=== PATIENT | female | born 1985 | race Caucasian/White ===

== ENCOUNTER 2021-02-09 20:23 | Emergency (ER) | payer BC, OTHER ==
[2021-02-09] MEDS ORDERED: Meclizine HCl 25 MG TAB ONE (20:41)
[2021-02-09] MEDS ORDERED: Ondansetron ODT 4 MG TAB ONE (20:41)
[2021-02-09] MEDS ORDERED: Sodium Chloride 0.9% 1,000 ML ONE (20:51)
[2021-02-09 21:06] LABS: #Basophils 0.1 thou/uL (0.0-0.2); #Eosinphils 0.1 thou/uL (0.0-0.7); #Lymphocytes 1.8 thou/uL (1.20-3.40); #Monocytes 0.6 thou/uL (0.11-0.59); %Basophils 0.9 % (0.0-1.0); %Eosinophils 0.8 % (0.0-10.0); %Lymphocytes 24.5 % (21.0-51.0); %Monocytes 7.5 % (0.0-10.0); %Neutrophils 66.3 % (42.0-75.0); Mean Corpuscular HGB CONC 31.2 g/dL (32.0-36.0); Mean Corpuscular Volume 89.8 fL (78.0-98.0); Mean Platelet Volume 7.9 fL (7.4-10.4); Platelet Count 219 thou/uL (130-400); RBC Distribution Width 11.9 % (11.5-14.5); White Blood Cell (WBC) Count 7.5 thou/uL (4.8-10.8)
[2021-02-09] MEDS ORDERED: Diazepam 5 MG TAB ONE (21:10)
[2021-02-09 21:22] LABS: Anion Gap 14 mmol/L (10-20); BHCG - Serum Negative (NEGATIVE); BUN (Urea Nitrogen) 13 mg/dL (7.0-18.7); Calc. Creatinine Clearance 0 mL/min (70-130); Calcium 9.8 mg/dL (7.8-10.44); Carbon Dioxide 22 mmol/L (22-29); Chloride 106 mmol/L (98-107); Glucose 104 mg/dL (70-105); Potassium 3.7 mmol/L (3.5-5.1); Pregs Control Bar Appear? YES (CONTROL BAR); Sodium 138 mmol/L (136-145)
== END 2021-02-09 22:35 | disposition home or self-care (01) ==
LOC: NAV ERS 20:23
DX: R42 Dizziness and giddiness (principal); R11.2 Nausea with vomiting, unspecified; Z79.84 Long term (current) use of oral hypoglycemic drugs; Z79.899 Other long term (current) drug therapy
CPT/HCPCS: 36415; 70450; 80048; 84703; 85025; J7050; Q0162